=== PATIENT | male | born 1970 | race Caucasian/White ===

== ENCOUNTER → 2018-07-04 | Outpatient (CLI) | payer BC, OTHER ==
[~2018-07-04] VITALS: Ht 185.4 cm; Wt 88.5 kg
[~2018-07-04] MED LIST: ANASTROZOLE1 MG PO; DEPO-TESTO200 MG/1 M IM; FLEXERIL PO; LIORESAL 10 MG10 MG PO; LISINOPRIL20 MG PO; LOVAZA1000 MG PO; MULTIVITAMINS PO; NABUMETONE 750750 M1 PO; VALTREX1000 MG PO; VITAMIN D-32000 UNIT PO; XANAX1 MG PO
--- NOTE | ~2018-07-04 | HPC ---
[facility] [place] [address] [address] PAIN MANAGEMENT CONSULTATION Name: KLEVER REDMOND [facility] #: [facility] [id number] Admission: 07/04/18 Attend Phys: Kwame Valencia DO Discharge: Date of : 66 Report #: [id number] THIS REPORT FOR: //name// CC: Nick Valencia DATE OF SERVICE: 07/04/2018 REFERRING PHYSICIAN: Nick Hearn MD CHIEF COMPLAINT: Low back pain, bilateral lower extremity pain. HISTORY OF PRESENT ILLNESS: As you know, the patient is a very pleasant 47-year-old male who returns today in followup visit with recurrent low back pain, lower extremity pain with paresthesias. The patient denies specific injury or trauma that led to recurrence of pain. He indicates pain level today of 3/10. States his pain is intermittent, periodic, gnawing, aching, sharp, numbness and tingling. Describes the pain as exacerbated with driving, sleeping and sitting, improves with ice, medications and epidural injections. He reports his previous epidural injection providing excellent benefit of upwards of 80% improvement in overall pain lasting for months. He returns today in followup visit requesting to undergo next in the series of epidural injection to address lumbar radicular symptoms. ALLERGIES: No known drug allergies. CURRENT MEDICATIONS: Multivitamin 1 tab per day, omega-3 fish oil 1 tab per day, Valtrex 1000 mg once a day, testosterone 1 mL intramuscular as directed, lisinopril 20 mg per day, anastrozole 1 mg per week, alprazolam 1 mg twice a day, cyclobenzaprine 10 mg p.r.n., nabumetone 500 mg twice a day. SOCIAL HISTORY: The patient denies tobacco, IV or illicit drug use. Admits to occasional alcohol beverage. He is working, not receiving workmen's compensation, nor is he trying to obtain disability benefits. He is unaccompanied today. IMAGING: There is no new imaging available. PHYSICAL EXAMINATION: VITAL SIGNS: Blood pressure 118/76, pulse 65, respiratory rate 16 and unlabored. The patient is 98% on room air, height 6 feet 1 inch tall, weight 195 pounds, BMI calculated 25.7. GENERAL: Well-developed, well-nourished, well-hydrated 47-year-old male appearing stated age, placing current pain score around 3/10. HEENT: Normocephalic, atraumatic. Pupils equal, round, reactive to light. [facility] [address] [place] [address] PAIN MANAGEMENT CONSULTATION Name: KLEVER REDMOND Room #: REG [facility].#: [id number] Admission: 07/04/18 Attend Phys: Kwame Valencia DO Discharge: Date of : 66 Report #: [id number] EXTREMITIES: Show no clubbing, no cyanosis, no edema. MUSCULOSKELETAL: Seated straight leg raising negative. Supine straight leg raising positive. Nedra's test negative. Modified Gaenslen's positive for axial low back pain. Ankle clonus negative. Babinski is negative. Muscle bulk and tone is symmetrical in lower extremities. His gait is mildly antalgic. He is able to stand from a seated position. Pain is elicited with this maneuver. ASSESSMENT: 1. Symptomatic lumbar radiculopathy. 2. Lumbosacral spondylosis with radiculopathy. 3. Facet arthropathy of the lumbar spine. 4. Chronic intractable pain. 5. Myofascial pain. PLAN: 1. The patient has returned today in followup visit requesting to undergo next in the series of epidural injections. As you are aware, the patient has done very well with previous epidural injections noticing benefit of upwards of 4 months. He returns today in followup visit requesting to undergo the next in the series of epidural injections. He has been advised of the risks and benefits. These risks include but are not necessarily limited to bleeding, bruising, infection, worsening pain, no relief of pain, also risk of temporary or permanent muscle weakness, temporary or permanent nerve damage, possible paralysis and . The patient states he understood and wished to proceed. 2. The patient and I had a discussion about his current muscle relaxant. Apparently, it is causing some severe somnolence. We have chosen to discontinue the cyclobenzaprine and trial the patient on baclofen. We are giving him a 10 mg dose. Advised the patient to take 1 tab p.o. q. 8 hours p.r.n. for pain. If this does not alleviate his muscle spasming in the mid back area, he can consider increasing it to 1-1/2 to 2 tabs as necessary. He is to watch for side effects of somnolence, decreased mental acuity, disorientation and confusion as well as mental slowing with the use of the baclofen and weakness. If he notes any side effects, discontinue immediately, call for further instructions. 3. We will see the patient back in followup visit on an as needed basis for the next in a series of epidural injections. We wish him well with this injection. I am hopeful he will see similar improvement as he has with previous injections. PROCEDURE NOTE DESCRIPTION OF PROCEDURE: L5-S1 paramedian epidural steroid injection under fluoroscopic guidance. After obtaining written consent, the patient was taken back to fluoroscopy suite, placed in prone position with pillow under abdomen to decrease lumbar lordosis. Skin overlying lumbosacral area then prepped and draped in aseptic fashion. Lumbar intervertebral spaces were identified by AP fluoroscopy. [facility] [address] [place] [address] PAIN MANAGEMENT CONSULTATION Name: KLEVER REDMOND [id number] Admission: 07/04/18 Attend Phys: Kwame Valencia DO Discharge: Date of : 66 Report #: [id number] and subcutaneous tissue overlying target site of injection was anesthetized with 3 mL of 1% lidocaine. A 20-gauge 3-1/2 inch Tuohy needle advanced under fluoroscopic guidance towards the epidural space using a paramedian approach. Epidural space identified using loss of resistance to air technique. After negative aspiration for heme or cerebrospinal fluid, 1 mL of Omnipaque was injected. Lumbar epidurogram confirmed using both AP and lateral fluoroscopy. After negative aspiration for heme or cerebrospinal fluid, 5 mL of a solution containing 2 mL 40 mg per mL, 80 mg total triamcinolone, 3 mL of lidocaine 1% injected slowly. Needle retracted group home, flushed with 1 mL of 1% lidocaine and removed. Sterile bandage placed over injection site. No new motor deficits present in lower extremity following procedure. The patient tolerated the procedure well, carefully escorted to recovery room in stable condition. No apparent complications. After meeting discharge criteria, the patient discharged home. <ELECTRONICALLY SIGNED> By: Kwame Valencia DO 07/10/18 1259 [id number] Kwame Valencia DO /abdulaziz
[2018-07-04 14:12] VITALS: BP 118/76
== END | disposition home or self-care (01) ==
LOC: PAIN 06:58
DX: M47.27 Other spondylosis with radiculopathy, lumbosacral region (principal); M46.96 Unspecified inflammatory spondylopathy, lumbar region; G89.29 Other chronic pain; M79.1 Myalgia; I10 Essential (primary) hypertension; Z87.442 Personal history of urinary calculi; Z79.899 Other long term (current) drug therapy

== ENCOUNTER → 2018-10-30 | Outpatient (CLI) | payer BC, OTHER ==
[~2018-10-30] VITALS: Ht 185.4 cm; Wt 88.5 kg
[~2018-10-30] MED LIST changes: +CARISOPRODOL 3350 MG PO
[2018-10-30 08:59] VITALS: BP 133/87
--- NOTE | 2018-10-30 09:12 | NUR ---
Pain Clinic Assessment: 1. History of Osteoarthritis: History of Rheumatoid Arthritis: 2. Height: 6 ft. 1 in. 185.4 cm. Weight: 195.0 lb. oz. 88.452 kg. Patient's BMI: 25.7 3. Vital Signs: BP: 133/87 Pulse: 83 Resp: 16 Temp: 02 Sat: 97 ECG Mon: 4. Pain Intensity: 4 5. Fall Risk: Dizziness: N Needs help standing or walking: N Fallen in the last 3 months: N Fall risk comments: 6. Patient on Blood Thinner: None 7. History of Hypertension: Y 8. Opioid Therapy greater than 6 weeks: N Opiate Contract Signed: 9. Risk Assessment Tool Provided: LOW 10. Functional Assessment Tool: 11. Recreational Drug Use: Never Drug Type: Tobacco Use: Never Smoker Tobacco Type: Amount or Packs/day: How Many Years: Alcohol Use: Yes Frequency: Quant:
--- NOTE | 2018-11-02 06:50 | HPC ---
[facility] [address] [place] [address] PAIN MANAGEMENT CONSULTATION Name: RUYKLEVER BADILLO Room #: REG [facility] [place].#: [id number] Admission: 10/30/18 Attend Phys: Kwame Valencia DO Discharge: Date of : 66 Report #: [id number] THIS REPORT FOR: //name// CC: Nick Valencia DATE OF SERVICE: 10/30/2018 REFERRING PHYSICIAN: Nick Hearn M.D. CHIEF COMPLAINT: Right thoracic and lumbar paraspinal pain. HISTORY OF PRESENT ILLNESS: As you know, the patient is a very pleasant 47-year-old male who returns today in followup visit with right-sided paraspinal pain radiating from the inferior portion of the scapula to the iliac crest. He states the pain is cramping in sensation with a stabbing sensations that occurred periodically. He has tried physical therapy, stretching exercises without improvement. He has been on muscle relaxants in the past with no improvement. As you are aware, the patient has changes in the lumbar spine with facet arthropathy typical for causing myofascial like symptoms the patient is experiencing. Unfortunately, his symptoms have not improved with conservative treatment and he has been referred back to our clinic to discuss options for treatment. He has suffered no new injury and no new trauma or any changes in medical history since our last visit. ALLERGIES: No known drug allergies. CURRENT MEDICATIONS: Multivitamin, omega 3 fish oil, Valtrex, testosterone, lisinopril, anastrozole, alprazolam, cyclobenzaprine and nabumetone. SOCIAL HISTORY: The patient denies tobacco, IV or illicit drug use. Admits to an occasional beverage. He is unaccompanied today. IMAGING DATA: No new imaging available. PHYSICAL EXAMINATION: VITAL SIGNS: Blood pressure 133/87, pulse 83 and respiratory rate 16 and unlabored. The patient is 97% on room air, height 6 feet 1 inch tall, weight 195 pounds and BMI calculated 25.7. GENERAL: Well-developed, well-nourished, well-hydrated 47-year-old male appearing stated age, placing current pain score 4/10. HEENT: Normocephalic and atraumatic. Pupils equal, round and reactive to light. Extraocular muscles are intact. EXTREMITIES: Show no clubbing, no cyanosis and no edema. MUSCULOSKELETAL: The patient has palpatory tenderness over the paraspinal [facility] [address] [place] [address] PAIN MANAGEMENT CONSULTATION Name: RUYKLEVER BADILLO Room #: REG CLI [facility]#: [id number] Admission: 10/30/18 Attend Phys: Kwame Valencia DO Discharge: Date of : 66 Report #: [id number] musculature of the mid and lower thoracic as well as the entire lumbar area. This is noted only on the right side. Deep palpation of the area causes intensification of pain. There are multiple tender points and no specific trigger points. The pain appears to be related to the muscular structures of the spinalis and longissimus. Does not appear to be any involvement of the ilial costalis muscle on the right. PLAN: 1. We discussed treatment options with the patient today, the following was discussed his treatment options. We discussed physical therapy, stretching exercise, core strengthening, which could significantly improve the patient's axial back pain issues. As issues are all myofascial in origin, we discussed medication changes rotating to a new muscle relaxant, one that he can take on a more consistent basis with less potential side effects. We discussed trigger point injections as an option for treatment. We also discussed acupuncture therapy and Botox injections as a possible option for treatment. After reviewing the risks and benefits, all proposed treatment options, the patient chose to begin with medication management, core strengthening and he will look into acupuncture and Botox therapies with other physicians. 2. We will discontinue the patient's baclofen, in place, we will use Soma 350 mg dose 1 tab p.o. t.i.d. p.r.n. muscle spasms. I have given the patient #90 tablets, advised to trial of medication to determine if he has no side effects. If he is doing well with the medication, we can continue the therapy to assist in pain control. The patient will watch for side effects of somnolence, decreased mental acuity, disorientation, confusion, mental slowing with the use of the medication. He is not to drive or operate heavy equipment while on this therapy. 3. The patient was given the names of 2 different physicians that provide Botox injections as a possible treatment option. He will look into these referrals and contact our clinic if he needs any information sent to those physicians. 4. I have advised the patient to seek a possible acupuncture therapy utilizing either dry needled approach or a percutaneous electrical nerve stimulation as an option. Both can be quite beneficial. He was given names of physicians who perform these type of procedures and this would be quite beneficial for the patient as well and he will look into this option in the very near future. 5. The patient will contact our clinic with any questions or concerns about treatment. We will see him back in followup visit if he wishes to look towards trigger point injections or medication changes. <ELECTRONICALLY SIGNED> By: Kwame Valencia DO 11/02/18 0650 [id number] Kwame Valencia DO /abdulaizz
== END ==
LOC: PAIN 06:46
DX: M54.6 Pain in thoracic spine (principal); M54.5 Low back pain; Z79.899 Other long term (current) drug therapy

== ENCOUNTER → 2019-05-07 | Outpatient (CLI) | payer BC, OTHER ==
[~2019-05-07] VITALS: Ht 185.4 cm; Wt 89.4 kg
--- NOTE | ~2019-05-07 | HPC ---
[facility] [address] [place] [address] PAIN MANAGEMENT CONSULTATION Name: RUYKLEVER BADILLO Room #: REG CL [facility].#: [id number] Admission: 05/07/19 ������������������ Attend Phys: Kwame Valencia DO Discharge: ������������������ Date of : 66 Report #: [id number] THIS REPORT FOR: //name// CC: SANDRA Valencia DATE OF SERVICE: 05/07/2019 CHIEF COMPLAINT: Low back pain, bilateral lower extremity pain with paresthesias. HISTORY OF PRESENT ILLNESS: As you know, the patient is a very pleasant 48-year-old male returning in followup visit to undergo next in the series of lumbar epidural injections to address low back pain and bilateral lower extremity pain. His previous injection provided 100% improvement in overall pain lasting for nearly 6 months. He returns today in followup visit without inciting injury or trauma requesting next in the series of epidural injections to address recurrent pain. He is placing current pain score around 5/10. He has also requested refill of his Soma he uses for muscle spasming. Most recent prescription for the Soma was provided in October. He appears to be taking this medication appropriately. He returns today in followup visit requesting the refill of the medication and undergo next in the series of epidural injections. ALLERGIES: No known drug allergies. CURRENT MEDICATIONS: Multivitamin, omega-3 fish oil, Valtrex, testosterone, lisinopril, anastrozole, alprazolam, Soma and nabumetone. SOCIAL HISTORY: The patient denies tobacco, IV or illicit drug use. Admits to occasional alcohol beverage. He is unaccompanied today. IMAGING: No new imaging available. PHYSICAL EXAMINATION: VITAL SIGNS: Blood pressure 123/81, pulse 66, respiratory rate 14 and unlabored. The patient is 97% on room air. Height 6 feet 1 inch tall, weight 197.2 pounds and BMI calculated 26.0. GENERAL: Well-developed, well-nourished, well-hydrated 48-year-old male, appearing stated age, pain is rated today at approximately 5/10. HEENT: Normocephalic, atraumatic. Pupils equal, round, reactive to light. EXTREMITIES: Show no clubbing, no cyanosis and no edema. MUSCULOSKELETAL: Lower extremity strength equal and symmetrical 5/5, intact to light touch from L1 through S2 dermatomes. Seated straight leg raising negative. Supine straight leg raising positive on the left. Nedra's test negative. [address] [address] PAIN MANAGEMENT CONSULTATION Name: KLEVER REDMOND Room #: REG CL Julissa#: [id number] Admission: 05/07/19 ������������������ Attend Phys: Kwame Valencia DO Discharge: ������������������ Date of : 66 Report #: [id number] ASSESSMENT: 1. Symptomatic lumbar radiculopathy. 2. Lumbosacral spondylosis with radiculopathy. 3. Facet arthropathy of the lumbar spine. 4. Chronic intractable pain. PLAN: 1. The patient returns today in followup visit to undergo next in the series of lumbar epidural injections under fluoroscopic guidance. He reports near 100% improvement in overall pain lasting for nearly 6 months with previous epidural injection. He returns requesting this injection today. He has been advised risks and benefits of the procedure, states understood and wished to proceed. 2. The patient was provided refill prescription of Soma 350 mg dose 1 tablet p.o. t.i.d. p.r.n. muscle spasms. I have given the patient #90 tablets, 1 refill, essentially 2-3 months' worth of medication. His last refill of medication was 10/30/2018. He appears to be taking the medication appropriately. Refills were provided today. 3. We will see the patient back in followup visit on an as needed basis for refill of medications or to undergo next in the series of lumbar epidural injections. We are pleased to see the patient does well with these treatment options and continues to function on a relatively pain free level. PROCEDURE NOTE DESCRIPTION OF PROCEDURE: L5-S1 left paramedian epidural steroid injection under fluoroscopic guidance. After obtaining written consent, the patient was taken back to fluoroscopy suite, placed in prone position with pillow under abdomen to decrease lumbar lordosis. Skin overlying lumbosacral area was then prepped and draped in aseptic fashion. Lumbar intervertebral spaces were identified by AP fluoroscopy. Skin and subcutaneous tissue overlying target site of injection was anesthetized with 3 mL of 1% lidocaine. A 20-gauge 3-1/2 inch Tuohy needle advanced under fluoroscopic guidance towards the epidural space using a left paramedian approach. Epidural space was identified using loss of resistance to air technique. After negative aspiration for heme or cerebrospinal fluid, 1 mL of Omnipaque injected. Lumbar epidurogram confirmed using both AP and lateral fluoroscopy. After negative aspiration for heme or cerebrospinal fluid, 5 mL of a solution containing 2 mL 40 mg per mL 80 mg total triamcinolone, 3 mL of lidocaine 1% injected slowly. Needle then retracted approximately half way, flushed with 1 mL of 1% lidocaine and then removed. Sterile bandage placed over injection site. No new motor deficits present in lower extremity following procedure. [address] [address] PAIN MANAGEMENT CONSULTATION Name: KLEVER REDMOND Room #: REG CLI [place]#: [id number] Admission: 05/07/19 ������������������ Attend Phys: Kwame Valencia DO Discharge: ������������������ Date of : 66 Report #: [id number] The patient tolerated the procedure well, carefully escorted to recovery room in stable condition. No apparent complications. After meeting discharge criteria, the patient discharged home. ��������������������������������������������� ���������������������������������������� By: ��������������������������������������������� [id number] [id number] Kwame Valencia DO /nt
[2019-05-07 10:33] VITALS: BP 123/81
--- NOTE | 2019-05-07 10:48 | NUR ---
Pain Clinic Assessment: 1. History of Osteoarthritis: DENIES History of Rheumatoid Arthritis: DENIES 2. Height: 6 ft. 1 in. 185.4 cm. Weight: 197.2 lb. oz. 89.449 kg. Patient's BMI: 26.0 3. Vital Signs: BP: 123/81 Pulse: 66 Resp: 14 Temp: 02 Sat: 97 ECG Mon: 4. Pain Intensity: 5 5. Fall Risk: Dizziness: N Needs help standing or walking: N Fallen in the last 3 months: N Fall risk comments: 6. Patient on Blood Thinner: None 7. History of Hypertension: Y 8. Opioid Therapy greater than 6 weeks: N Opiate Contract Signed: 9. Risk Assessment Tool Provided: LOW 10. Functional Assessment Tool: 11. Recreational Drug Use: Never Drug Type: Tobacco Use: Never Smoker Tobacco Type: Amount or Packs/day: How Many Years: Alcohol Use: Yes Frequency: Weekly Quant: 3-4 A WEEK
== END | disposition home or self-care (01) ==
LOC: PAIN 06:53
DX: M47.27 Other spondylosis with radiculopathy, lumbosacral region (principal); M47.26 Other spondylosis with radiculopathy, lumbar region; G89.29 Other chronic pain; Z79.899 Other long term (current) drug therapy; Z98.890 Other specified postprocedural states

== ENCOUNTER → 2019-09-25 | Outpatient (CLI) | payer BC, OTHER ==
[~2019-09-25] VITALS: Ht 185.4 cm; Wt 93.6 kg
--- NOTE | ~2019-09-25 | HPC ---
[facility] [address] [place] [address] PAIN MANAGEMENT CONSULTATION Name: DEXTERMELBlueKLEVER BADILLO Room #: REG [facility] MStaci.#: [id number] Admission: 09/25/19 Attend Phys: Kwame Valencia DO Discharge: Date of : 66 Report #: [id number] THIS REPORT FOR: //name// CC: Nick Valencia DATE OF SERVICE: 09/25/2019 CHIEF COMPLAINT: Neck pain, right upper extremity pain with paresthesias. HISTORY OF PRESENT ILLNESS: As you know, the patient is a very pleasant 48-year-old male who returns today in followup visit with recurrent neck pain, right upper extremity pain with paresthesias. He describes pain as constant, aching, throbbing and gnawing, exacerbated with sleeping, certain activities and lifting, improves with rubbing and massage as well as medication management. He returns today in followup visit to undergo a cervical epidural injection under fluoroscopic guidance to address the findings of his MRI of cervical spine and his physical findings. His recent MRI 09/19/2019 shows changes at the C5-C6 level that may be the source of his symptoms. He is referred back to our clinic by his PCP to undergo cervical epidural injection to address this problem. The patient indicates no injury or trauma that led to symptom development. ALLERGIES: No known drug allergies. CURRENT MEDICATIONS: Multivitamin, omega-3 fish oil, valacyclovir, testosterone, lisinopril, anastrozole, nabumetone, carisoprodol omega-3 fish oil. SOCIAL HISTORY: The patient denies tobacco, alcohol, IV or illicit drug use. He is unaccompanied today. IMAGING: MRI cervical spine obtained 09/19/2019 shows C2-C3, C3-C4, C4-C5 with mild degenerative changes, mild posterior disk bulging. No central canal neural foraminal stenosis. C5-C6 has degenerative disk disease, mild posterior disk bulge, mild effacement of the ventral cord, mild bilateral neural foraminal narrowing. C6-C7 and C7-T1 are unremarkable. PHYSICAL EXAMINATION: VITAL SIGNS: Blood pressure 135/83, pulse 81, respiratory rate 16 and unlabored. The patient is 97% on room air, height 6 feet 1 inch tall, weight 206.4 pounds, BMI calculated 27.2. GENERAL: Well-developed, well-nourished, well-hydrated 48-year-old male appearing stated age, pain is rated today somewhere between 6-7/10. HEENT: Normocephalic, atraumatic. Pupils equal, round, and reactive to light. Extraocular muscles are intact. Sclerae nonicteric without injection. [address] [address] PAIN MANAGEMENT CONSULTATION Name: KLEVER REDMOND Room #: REG KEYANNA Costa#: [id number] Admission: 09/25/19 Attend Phys: Kwame Valencia DO Discharge: Date of : 66 Report #: [id number] NEUROLOGIC: Cranial nerves 2 through 12 grossly intact. Speech fluent. The patient deemed a good historian. EXTREMITIES: Show no clubbing, no cyanosis, and no edema. MUSCULOSKELETAL: Upper extremity strength appears symmetrical 5/5. Muscle bulk and tone equal and symmetrical in comparing left upper extremity to right. Spurling's test is mildly positive right. Negative left. Cervical provocation test is met with mild increase in axial cervical spine pain, no radiation of symptoms. There is palpatory tenderness over the cervical spine, right-sided only. Multiple tender points, no specific trigger points. Spinous process tenderness is negative. ASSESSMENT: 1. Cervical radiculopathy. 2. Degeneration of the cervical spine. 3. Mild displacement of cervical intervertebral disk. 4. Neural foraminal stenosis of the cervical spine. PLAN: 1. The patient has returned today in followup visit per the request of his primary care physician to undergo a cervical epidural injection under fluoroscopic guidance. Based on his physical examination and his MRI findings, I agree he is suffering from cervical radiculopathy and I do feel a cervical epidural injection would be beneficial. The patient and I did discuss the risks and the benefits of this procedure. These risks include but are not necessarily limited to bleeding, bruising, infection, worsening pain, no relief of pain, also risk of temporary or permanent muscle weakness, temporary or permanent nerve damage, possible paralysis and . The patient states understood and wished to proceed. 2. No medication changes made at today's visit. The patient will continue current medical therapy as prior prescribed. 3. We will see the patient back in followup visit on an as needed basis for possible next in the series of cervical epidural injections. PROCEDURE NOTE DESCRIPTION OF PROCEDURE: C7-T1 cervical epidural steroid injection under fluoroscopic guidance. This is the first procedure of the first series that the patient is undergoing. After obtaining written consent, the patient was taken back to the fluoroscopy suite and placed in a prone position with separate pillows under chest and forehead to decrease cervical lordosis. The skin overlying the cervical area was prepped and draped in an aseptic fashion. The C7-T1 vertebral interspace was identified by AP fluoroscopy. The skin and subcutaneous tissue overlying the target site of injection was anesthetized using 3 mL of 1% lidocaine. [address] [address] PAIN MANAGEMENT CONSULTATION Name: KLEVER REDMOND [facility] [id number] Admission: 09/25/19 Attend Phys: Kwame Valencia DO Discharge: Date of : 66 Report #: [id number] A 20-gauge 3-1/2 Tuohy needle was advanced under fluoroscopic guidance toward the epidural space using a midline approach. The epidural space was identified using a loss of resistance to air technique. After negative aspiration for heme or cerebrospinal fluid, a total of 1 mL of Omnipaque was injected. A cervical epidurogram was confirmed using AP and oblique fluoroscopy. After negative aspiration for heme or cerebrospinal fluid, 5 mL of a solution containing 2 mL 40 mg per mL, 80 mg total triamcinolone along with 3 mL lidocaine 1% was injected in increments. Contrast spread was noted from posterior epidural space. The needle was then retracted approximately detention and the needle track was flushed with 1 mL of 1% lidocaine. There were no apparent new sensory deficits in the upper extremities present following the procedure. A sterile bandage was placed over the injection site. The heart rate, pulse oximetry and blood pressure were continuously monitored after the procedure. There were no apparent complications. The patient tolerated the procedure well and was carefully escorted in the recovery room in stable condition. After meeting discharge criteria, the patient was discharged home. By: [id number] Kwame Valencia, DO /nt
[2019-09-25 12:46] VITALS: BP 135/83
--- NOTE | 2019-09-25 12:59 | NUR ---
Pain Clinic Assessment: 1. History of Osteoarthritis: DENIES History of Rheumatoid Arthritis: DENIES 2. Height: 6 ft. 1 in. 185.4 cm. Weight: 206.4 lb. oz. 93.623 kg. Patient's BMI: 27.2 3. Vital Signs: BP: 135/83 Pulse: 81 Resp: 16 Temp: 02 Sat: 97 ECG Mon: 4. Pain Intensity: 6-7 5. Fall Risk: Dizziness: N Needs help standing or walking: N Fallen in the last 3 months: N Fall risk comments: 6. Patient on Blood Thinner: None 7. History of Hypertension: Y 8. Opioid Therapy greater than 6 weeks: N Opiate Contract Signed: 9. Risk Assessment Tool Provided: LOW 10. Functional Assessment Tool: 43 11. Recreational Drug Use: Never Drug Type: Tobacco Use: Never Smoker Tobacco Type: Amount or Packs/day: How Many Years: Alcohol Use: Yes Frequency: Quant:
== END | disposition home or self-care (01) ==
LOC: PAIN 06:58
DX: M50.122 Cervical disc disorder at C5-C6 level with radiculopathy (principal); M48.02 Spinal stenosis, cervical region; G89.29 Other chronic pain; Z79.899 Other long term (current) drug therapy

== ENCOUNTER → 2020-09-23 | Outpatient (CLI) | payer BC, OTHER ==
[~2020-09-23] VITALS: Ht 185.4 cm; Wt 93.7 kg
--- NOTE | ~2020-09-23 | HPC ---
[facility] [place] [address] [place] [address] PAIN MANAGEMENT CONSULTATION Name: KLEVER REDMOND [facility] #: [facility] [id number] Admission: 09/23/20 Attend Phys: Kwame Valencia DO Discharge: Date of : 66 Report #: [id number] THIS REPORT FOR: cc: Nick Hearn MD,Kwame Spence MD, DO ~ DATE OF SERVICE: 09/23/2020 REFERRING PHYSICIAN: Nick Hearn MD CHIEF COMPLAINT: Low back pain, right lower extremity pain and paresthesias. HISTORY OF PRESENT ILLNESS: As you know, the patient is a very pleasant 49-year-old male with chronic lumbar radiculopathy involving the low back and right lower extremity that has recurred. He is now placing pain score 6/10 to 8/10. He has done very well with previous lumbar epidural injections reporting up to 80-90% improvement in overall pain. The last epidural injection we provided for the patient to address lumbar radiculopathy was 05/07/2019. He had been doing very well until just recently, where he has had a slow and progressive return of symptoms. He denies injury or trauma. He returns today in followup visit requesting to undergo a lumbar epidural injection under fluoroscopic guidance in hopes of improving pain. ALLERGIES: No known drug allergies. CURRENT MEDICATIONS: Taft-3 fish oil, nabumetone, anastrozole, lisinopril, testosterone, valacyclovir, multivitamin. SOCIAL HISTORY: The patient denies tobacco, alcohol, IV or illicit drug use. He is working, not receiving workmen's compensation, unaccompanied today. IMAGING: No new imaging available. PHYSICAL EXAMINATION: VITAL SIGNS: Blood pressure 125/85, pulse 82, respiratory rate 16 and unlabored. The patient is 97% on room air. Height 6 feet 1 inch tall, weight 206.6 pounds, BMI calculated 27.3. GENERAL: Well-developed, well-nourished, well-hydrated 49-year-old male, appearing his stated age. Pain is rated today anywhere from 6/10 to 8/10 depending on activity. HEENT: Normocephalic, atraumatic. Pupils equal, round and reactive. NEUROLOGIC: Speech is fluent. The patient is wearing a mask in compliance with COVID-19 regulations. EXTREMITIES: Show no clubbing, no cyanosis and no edema. MUSCULOSKELETAL: Lower extremity strength equal and symmetrical, 5/5. He is intact to light touch from L1 through S2 dermatomes[place] [address] PAIN MANAGEMENT CONSULTATION Name: KLEVER REDMOND Room #: REG [facility].#: [id number] Admission: 09/23/20 Attend Phys: Kwame Valencia DO Discharge: Date of : 66 Report #: [id number] raising positive. Nedra's test is negative. Modified Gaenslen's positive for axial low back pain. Ankle clonus negative. Babinski is negative. ASSESSMENT: 1. Symptomatic lumbar radiculopathy. 2. Lumbosacral spondylosis with radiculopathy. 3. Facet arthropathy of the lumbar spine. 4. Chronic intractable pain. PLAN: 1. The patient returns today in followup visit requesting to undergo lumbar epidural injection under fluoroscopic guidance. He has reported excellent benefit with epidural injections in the past. Most recent lumbar epidural injection was given 05/07/2019. He had been doing very well until just recently where he had a slow and progressive return of symptoms, no inciting injury or trauma. He returns today to undergo next in the series of epidural injections to address this recurrent symptoms of pain rated anywhere from 6/10 to 8/10. The patient has been advised risks and benefits of the procedure, states understood and wished to proceed. 2. No medication changes made at today's visit. The patient will continue current medical therapy as prior prescribed. 3. We plan to see the patient back in followup visit on an as needed basis, possibly next in the series of epidural injections. We are hopeful the patient will once again see excellent and prolonged benefit with the procedure. PROCEDURE NOTE DESCRIPTION OF PROCEDURE: L5-S1 intralaminar epidural steroid injection under fluoroscopic guidance. After obtaining written consent, the patient was taken back to fluoroscopy suite, placed in prone position with pillow under abdomen to decrease lumbar lordosis. Skin overlying lumbosacral area then prepped and draped in aseptic fashion. L5-S1 vertebral interspace identified by AP fluoroscopy. Skin and subcutaneous tissue overlying target site of injection anesthetized with 3 mL of 1% lidocaine. A 20-gauge 3-1/2 inch Tuohy needle advanced under fluoroscopic guidance towards the epidural space using a parasagittal approach. The epidural space identified using loss of resistance to air technique. After negative aspiration for heme or cerebrospinal fluid, 1 mL of Omnipaque injected. Lumbar epidurogram confirmed using both AP and lateral fluoroscopy. After negative aspiration for heme or cerebrospinal fluid, 5 mL of a solution containing 2 mL 40 mg per mL, 80 mg total triamcinolone along with 3 mL of lidocaine 1% injected slowly. Needle then retracted correction, flushed with 1 mL of 1% lidocaine and then removed. Sterile bandage placed over injection site. No new motor deficits present in [address] [address] PAIN MANAGEMENT CONSULTATION Name: KLEVER REDMOND Room #: REG Karen Costa#: [id number] Admission: 09/23/20 Attend Phys: Kwame Valencia DO Discharge: Date of : 66 Report #: [id number] the lower extremities following procedure. The patient tolerated procedure well, carefully escorted to recovery room in stable condition. No apparent complications. After meeting discharge criteria, the patient discharged home. By: [id number] Kwame Valencia DO /nt
[2020-09-23 12:57] VITALS: BP 125/85
--- NOTE | 2020-09-23 13:26 | NUR ---
Pain Clinic Assessment: 1. History of Osteoarthritis: DENIES History of Rheumatoid Arthritis: DENIES 2. Height: 6 ft. 1 in. 185.4 cm. Weight: 206.6 lb. oz. 93.713 kg. Patient's BMI: 27.3 3. Vital Signs: BP: 125/85 Pulse: 82 Resp: 16 Temp: 02 Sat: 97 ECG Mon: 4. Pain Intensity: 6 DAY 8 NIGHT 5. Fall Risk: Dizziness: N Needs help standing or walking: N Fallen in the last 3 months: N Fall risk comments: 6. Patient on Blood Thinner: None 7. History of Hypertension: Y 8. Opioid Therapy greater than 6 weeks: N Opiate Contract Signed: 9. Risk Assessment Tool Provided: LOW 10. Functional Assessment Tool: 11. Recreational Drug Use: Never Drug Type: Tobacco Use: Never Smoker Tobacco Type: Amount or Packs/day: How Many Years: Alcohol Use: Yes Frequency: Weekly Quant:
== END | disposition home or self-care (01) ==
LOC: PAIN 06:59
PROVIDERS: ATTEND Anesthesiology Pain Medicine
DX: M47.27 Other spondylosis with radiculopathy, lumbosacral region (principal); M47.26 Other spondylosis with radiculopathy, lumbar region; G89.29 Other chronic pain; Z98.890 Other specified postprocedural states; Z79.899 Other long term (current) drug therapy

== ENCOUNTER → 2021-07-07 | Outpatient (CLI) | payer BC, OTHER ==
[~2021-07-07] VITALS: Ht 185.4 cm; Wt 94.1 kg
[~2021-07-07] MED LIST changes: +MEDROLDOSEPACK PO
--- NOTE | ~2021-07-07 | HPC ---
[facility] [address] [address] PAIN MANAGEMENT CONSULTATION Name: KLEVER REDMOND [facility] #: [id number] Admission: 07/07/21 Attend Phys: Kwame Valencia DO Discharge: Date of : 66 Report #: [id number] THIS REPORT FOR: cc: Nick Hearn MD,Kwame Spence MD, DO ~ cc: Nick Hearn MD DATE OF SERVICE: 07/07/2021 REFERRING PHYSICIAN: Dr. Nick Hearn. CHIEF COMPLAINT: Low back pain, left lower extremity pain with paresthesias. HISTORY OF PRESENT ILLNESS: As you know, the patient is a very pleasant 50-year-old male who had recurrence of low back pain, left lower extremity pain with paresthesia that began spontaneously. No inciting injury or trauma. The patient states his pain intensified to a level of 8/10 over the past week. He made the appointment to be seen to discuss possible epidural injection under fluoroscopic guidance. He reports today that his pain has improved significantly. He is now placing pain at around 2/10. He states he is doing well and wants to delay the epidural injection, but wants to discuss the possibility of being provided medication in case his symptoms do recur. The patient as indicated above, has had no new injury or trauma, no changes in medication management since our last visit. ALLERGIES: No known drug allergies. CURRENT MEDICATIONS: Multivitamin, omega-3 fish oil, valacyclovir, testosterone, lisinopril, anastrozole, nabumetone, ____. SOCIAL HISTORY: The patient denies tobacco, alcohol or IV or illicit drug use. He is unaccompanied at today's visit. IMAGING: No new imaging available. PHYSICAL EXAMINATION: GENERAL: Well-developed, well-nourished, well-hydrated 50-year-old male appearing stated age, pain is rated about 2/10. HEENT: Normocephalic, atraumatic. Pupils equal, round and responsive to light. He is wearing a mask in compliance with COVID-19 regulations. EXTREMITIES: Show no clubbing, no cyanosis and no edema. MUSCULOSKELETAL: Lower extremity strength appears symmetrical 5/5. He is intact to light touch from L1 through S2 dermatomes. Seated straight leg raising negative. Supine straight leg raising is equivocal left, negative right. Ankle clonus negative. Babinski is negative. Gait is normal. [address] [address] PAIN MANAGEMENT CONSULTATION Name: KLEVER REDMOND Room #: REG CLI AnnieAnnie#: [id number] Admission: 07/07/21 Attend Phys: Kwame Valencia DO Discharge: Date of : 66 Report #: [id number] ASSESSMENT: 1. Symptomatic lumbar radiculopathy. 2. Lumbosacral spondylosis with radiculopathy. 3. Facet arthropathy of lumbar spine. 4. Recurrent back pain with radicular symptoms. 5. Chronic intractable pain. PLAN: 1. The patient has returned today in followup visit indicating that he had an exacerbation of symptoms recently, but it has improved with time and [id number] medications. He is taking the nabumetone 3 times a day, which he believes has been quite beneficial. He was taking the nabumetone as needed, but when his pain intensified he initiated the t.i.d. therapy and noted good benefit. He returns today wanting to delay the next in the series of epidural injections as he is doing better overall. He has been able to return to all activities of daily living without significant pain interference. He returns for adjustments in medication management. 2. The patient will be provided a Medrol Dosepak. He will take this pack as directed if his symptoms do recur. This will be utilized to help reduce the initial pain he may experience with lumbar radiculopathy. I did advise the patient if he does choose to take this Medrol Dosepak, he should contact our clinic so that we are aware and we will make him a followup appointment in case an epidural would be necessary. A prescription for the Medrol Dosepak was sent to his local pharmacy. 3. We recommend the patient continue on nabumetone 500 mg dose. I have given him a t.i.d. dosing, #90 with multiple refills. The patient was advised to watch for dyspepsia, worsening of blood pressure, lower extremity edema with use of medication. 4. We plan to see the patient back in followup visit on an as needed basis. I am pleased to see the patient has done better overall and that the tincture of time and the use of the nabumetone has been effective at treating his recurrent lumbar radicular symptoms. We will be available to see him back in followup visit if he does need a next in the series of epidural injections. By: [id number] Kwame Valencia DO /nt
[2021-07-07 09:50] VITALS: BP 124/73
--- NOTE | 2021-07-07 10:10 | NUR ---
Pain Clinic Assessment: 1. History of Osteoarthritis: DENIES History of Rheumatoid Arthritis: DENIES 2. Height: 6 ft. 1 in. 185.4 cm. Weight: 207.4 lb. oz. 94.076 kg. Patient's BMI: 27.4 3. Vital Signs: BP: 124/73 Pulse: 75 Resp: 16 Temp: 02 Sat: 97 ECG Mon: 4. Pain Intensity: 0 DAY 2-3 NIGHT 5. Fall Risk: Dizziness: N Needs help standing or walking: N Fallen in the last 3 months: N Fall risk comments: 6. Patient on Blood Thinner: None 7. History of Hypertension: Y 8. Opioid Therapy greater than 6 weeks: N Opiate Contract Signed: 9. Risk Assessment Tool Provided: LOW 10. Functional Assessment Tool: 11. Recreational Drug Use: Never Drug Type: Tobacco Use: Never Smoker Tobacco Type: Amount or Packs/day: How Many Years: Alcohol Use: Yes Frequency: Monthly Quant: 2
== END ==
LOC: PAIN 07:05
PROVIDERS: ATTEND Anesthesiology Pain Medicine
DX: G89.29 Other chronic pain (principal); M47.27 Other spondylosis with radiculopathy, lumbosacral region; M47.26 Other spondylosis with radiculopathy, lumbar region; M79.662 Pain in left lower leg